=== PATIENT | male | born 1970 | race Hispanic/Latino ===

== ENCOUNTER 2022-12-19 11:33 | Emergency (ER) | payer OTHER ==
[2022-12-19] MEDS ORDERED: Sodium Chloride 0.9% 1,000 ML ONE (12:15)
[2022-12-19] MEDS ORDERED: Ondansetron PF 4 MG/2 ML Vial ONE (12:15)
[2022-12-19 12:47] LABS: Band 14 % (5-11); Eosinophils 2 % (0-10); Hemoglobin 16.3 g/dL (14.0-18.0); Lymphocytes 22 % (21-51); MDiff Complete? YES; Mean Corpuscular HGB CONC 34.9 g/dL (32.0-36.0); Mean Corpuscular Hemoglobin 30.6 pg (27.0-31.0); Mean Corpuscular Volume 87.7 fl (78.0-98.0); Mean Platelet Volume 7.4 fL (7.4-10.4); Monocytes 12 % (0-10); Neutrophil 48 % (42-75); Platelet Adequacy Comment Appears Adequate; Platelet Count 271 10x3/uL (130-400); RBC Distribution Width 11.5 % (11.5-14.5); Reactive Lymphocytes 2 % (0-10); Red Blood Cell (RBC) Count 5.33 mill/uL (4.70-6.10); White Blood Cell (WBC) Count 8.1 10x3/uL (4.8-10.8)
[2022-12-19] MEDS ORDERED: Pantoprazole 40 MG VIAL ONE (12:48)
[2022-12-19 12:50] LABS: ALT (SGPT) 38 U/L (8-55); AST (SGOT) 30 U/L (5-34); Albumin 4.1 g/dL (3.5-5.0); Alkaline Phosphatase 74 U/L (40-110); Anion Gap 11 mmol/L (10-20); BUN (Urea Nitrogen) 14 mg/dL (8.4-25.7); Bilirubin, Total 0.8 mg/dL (0.2-1.2); Calc. Creatinine Clearance 0 mL/min (70-130); Calcium 8.5 mg/dL (7.8-10.44); Carbon Dioxide 23 mmol/L (22-29); Chloride 104 mmol/L (98-107); Estimated GFR 105; Globulin 3.4 g/dL (2.4-3.5); Glucose 113 mg/dL (70-105); Lipase 17 U/L (8-78); Potassium 3.4 mmol/L (3.5-5.1); Protein, Total 7.5 g/dL (6.0-8.3); Sodium 135 mmol/L (136-145)
[2022-12-19 13:13] LABS: Bilirubin Negative (Negative); Blood, Urine Negative (Negative); Glucose, Urine (Dipstick) Negative (Negative); Ketone, Urine Negative (Negative); Leukocyte Negative (Negative); Nitrite Negative (Negative); Protein, Urine (Dipstick) Trace mg/dL (Neg-Trace); Specific Gravity, Urine 1.025 (1.005-1.030); Urobilinogen 0.2 mg/dL (Less than 2)
[2022-12-19 13:15] LABS: CAUTI Indications for Culture Pelvic or flank pain; Clarity Hazy (Clear)
[2022-12-19 13:18] LABS: Bacteria/HPF 1+ HPF (None Seen); RBC/HPF 0-3 HPF (0-3); Squamous Epithelial 0-3 HPF (0-3); WBC/HPF 0-3 HPF (0-3)
[2022-12-19 13:19] LABS: Urine Culture Reflex No No
[2022-12-19] MEDS ORDERED: Iopamidol 370 76% 100 ML VIAL ONE (15:53)
[2022-12-19 22:57] LABS: Campy jejuni + coli by PCR Negative (Negative); STEC Shiga Toxin 1+2 Negative (Negative); Salmonella spp. by PCR Negative (Negative); Shigella spp + EIEC by PCR Negative (Negative)
== END 2022-12-19 14:20 | disposition home or self-care (01) ==
LOC: MADERS 11:33
DX: K52.9 Noninfective gastroenteritis and colitis, unspecified (principal); B35.2 Tinea manuum
CPT/HCPCS: 74177; 80053; 81001; 82274; 83630; 83690; 85025; 87505; 96374; 96375; C9113; J2405; J7050; Q9967

== ENCOUNTER 2024-04-23 08:33 | Emergency (ER) | payer OTHER | END 2024-04-23 09:49 | disposition home or self-care (01) | LOC: MADERS 08:33 | DX: J20.9 Acute bronchitis, unspecified (principal) | CPT/HCPCS: 87400; 99283 ==